=== PATIENT | female | born 1935 | race Caucasian/White ===

== ENCOUNTER 2019-03-31 13:07 | Emergency (ER) | payer MEDICARE, MEDICAID ==
[~2019-03-31] VITALS: Ht 152.4 cm; Wt 61.2 kg
[2019-03-31 13:13] VITALS: BP 161/79
[2019-03-31] MEDS ORDERED: TRAM50TA2 PO (13:36)
[2019-03-31] MEDS ORDERED: PRAV40TA3 PO (13:36)
[2019-03-31] MEDS ORDERED: FLUT16SP BNOSTRILS (13:36)
[2019-03-31] MEDS ORDERED: IBUP-1955 PO (13:36)
[2019-03-31] MEDS ORDERED: TOLT4CAP PO (13:36)
[2019-03-31] MEDS ORDERED: CARV3.122 PO (13:36)
[2019-03-31] MEDS ORDERED: LEVE250T2 PO (13:36)
[2019-03-31] MEDS ORDERED: ALEN70TA6 PO (13:36)
[2019-03-31] MEDS ORDERED: LOSA1TAB42 PO (13:36)
[2019-03-31] MEDS ORDERED: ALBU1.257 IH (13:36)
[2019-03-31] MEDS ORDERED: DULO30CA2 PO (13:36)
[2019-03-31] MEDS ORDERED: LEVO100T9 PO (13:36)
[2019-03-31] MEDS ORDERED: POTA10TA15 PO (13:36)
[2019-03-31] MEDS ORDERED: diphenhydrAMINE HCL ELIX 25 MG/10 ML UDC ONE (14:21)
[2019-03-31] MEDS ORDERED: CEPHALEXIN MONOHYDRATE 500 MG CAPSULE PO ONE (14:21)
[2019-03-31] MEDS: CEPHALEXIN MONOHYDRATE 500 MG CAPSULE PO ONE (14:32)
[2019-03-31] MEDS: DIPHENHYDRAMINE HCL 12.5 MG/5 ML UDC PO ONE (14:32)
--- NOTE | 2019-03-31 14:42 | NUR ---
CALLED TRANSPORT [phone] ETA IS 1530 PER [facility]STAL TRIP # [id number]
--- NOTE | 2019-03-31 15:48 | NUR ---
REPORT GIVEN TO SCIENTIFIC INFORMATICS ANALYST. PAPERWORK GIVEN. PATIENT LEFT IN STABLE CONDITION.
--- NOTE | 2019-03-31 16:03 | NUR ---
PATIENT DENIES CHEST PAIN OR DISCOMFORT AT THIS TIME, PER PATIENT WILL TAKE BP MEDS AT HOME. DISCHARGED TO [facility].
== END 2019-03-31 16:05 ==
LOC: ER 13:15
DX: S60.463A Insect bite (nonvenomous) of left middle finger, initial encounter (principal); S60.465A Insect bite (nonvenomous) of left ring finger, initial encounter; L03.114 Cellulitis of left upper limb; R56.9 Unspecified convulsions; I10 Essential (primary) hypertension; Z79.899 Other long term (current) drug therapy; W57.XXXA Bitten or stung by nonvenomous insect and other nonvenomous arthropods, initial encounter; Y93.89 Activity, other specified; Y92.89 Other specified places as the place of occurrence of the external cause; Y99.8 Other external cause status
CPT/HCPCS: 99283; Q0163 ×2

== ENCOUNTER 2019-05-10 15:50 | Inpatient (IN) | payer MEDICARE, MEDICAID ==
[~2019-05-10] VITALS: Ht 154.9 cm; Wt 51.3 kg
[~2019-05-10 15:50] MED LIST: ALBU1.257 IH; ALEN70TA6 PO; CARV3.122 PO; DULO30CA2 PO; FLUT16SP BNOSTRILS; IBUP-1955 PO; LEVE250T2 PO; LEVO100T9 PO; LOSA1TAB42 PO; POTA10TA15 PO; PRAV40TA3 PO; TOLT4CAP PO; TRAM50TA2 PO
--- NOTE | 2019-05-10 16:10 | NUR ---
rahel, from [facility], altered than usual, c/o lower back pain s/p fall thursday and thursday. Patient a/ox2-3, weak, breathing even and unlabored, no sob noted, attached to the monitoring engineer.
[2019-05-10] MEDS ORDERED: LORA-259 PO (16:14)
[2019-05-10] MEDS ORDERED: IV NS 0.9% 500 ML BAG IV ONE (16:30)
--- NOTE | 2019-05-10 16:30 | NUR ---
PATIENT OFFERED A STRAIGHT CATHETER, PATIENT REFUSED, PREFERS A BED TONY, BUT NOT AT THIS TIME.
[2019-05-10 16:36] LABS: BASOPHILS % (AUTO) 0.5 % (0.0-2.0); EOSINOPHILS % (AUTO) 1.2 % (0.0-6.0); HEMATOCRIT 41 % (33-45); HEMOGLOBIN 13.9 g/dL (11.5-14.8); LYMPHOCYTES # (AUTO) 1.1 /CMM (0.8-4.8); LYMPHOCYTES % (AUTO) 9.9 % (20.0-44.0); MEAN CORPUSCULAR HGB CONC 34 g/dl (31.0-36.0); MEAN CORPUSCULAR VOLUME 83 fL (82-100); MONOCYTES # (AUTO) 0.8 /CMM (0.1-1.30); MONOCYTES % (AUTO) 7.3 % (2.0-12.0); NEUTROPHILS # (AUTO) 8.6 /CMM (1.8-8.9); NEUTROPHILS % (AUTO) 81.1 % (43.0-81.0); PLATELET COUNT (AUTO) 187 /CMM (150-450); RED BLOOD CELL COUNT(AUTO) 4.93 MIL/uL (4.0-5.2); WHITE BLOOD COUNT (AUTO) 10.6 K/uL (4.3-11.0)
[2019-05-10 16:50] LABS: ALANINE AMINOTRANSFERASE 30 U/L (12-78); ALBUMIN 3.3 g/dL (3.4-5.0); ALKALINE PHOSPHATASE 55 U/L (46-116); ASPARTATE AMINOTRANSFERASE 46 U/L (15-37); BILIRUBIN,DIRECT 0.3 mg/dL (0.0-0.2); BILIRUBIN,TOTAL 1.3 mg/dL (0.2-1.0); CALCIUM, SERUM 9.2 mg/dL (8.5-10.1); CARBON DIOXIDE 34 mmol/L (21-32); CHLORIDE 97 mmol/L (98-107); GLUCOSE 112 mg/dL (74-106); POTASSIUM 3.3 mmol/L (3.5-5.1); SODIUM SERUM 138 mmol/L (136-145); TOTAL PROTEIN, SERUM 7.1 g/dL (6.4-8.2); UREA NITROGEN, BLOOD 23 mg/dL (7-18)
[2019-05-10 17:31] LABS: THYROID STIMULATING HORMONE 53.021 uIU/mL (0.358-3.74)
--- NOTE | 2019-05-10 17:42 | NUR ---
NURSING SUP GAVE TELE BED 309-1.
--- NOTE | 2019-05-10 18:10 | NUR ---
REPORT GIVEN TO JOY FRANCES.
--- NOTE | 2019-05-10 18:36 | NUR ---
Patient transferred to room 309-1 in stable condition. No distress noted. Endorsed to Racquel FRANCES.
--- NOTE | 2019-05-10 18:37 | NUR ---
COOLER MAN NOTES RECEIVED PT FROM E.R. STAFF VIA PHI, PT IS AWAKE, ALERT AND VERBALLY RESPONSIVE, ASSISTED TO BED, MADE COMFORTABLE, ROOM SET UP ORIENTATION PROVIDED TO PT, NO COMPLAINT OF PAIN, NOT IN DISTRESS, KEPT WARM AND COMFORTABLE IN BED, RECEIVED ADMITTING ORDERS FROM DR. GUTIERREZ, NOTED AND CARRIED OUT.
[2019-05-10] MEDS ORDERED: ONDANSETRON HCL/PF 4 MG/2 ML VIAL IVP PRN (19:00)
[2019-05-10] MEDS ORDERED: LORAZEPAM INJ 2 MG/ML VIAL IVP PRN (19:00)
[2019-05-10 19:03] LABS: APPEARANCE,URINE Clear (CLEAR); BILIRUBIN,URINE SMALL (NEGATIVE); BLOOD, URINE Moderate Ery/uL (NEGATIVE); COLOR,URINE Dark (YELLOW); KETONES,URINE 40 (NEGATIVE); LEUKOCYTE ESTERASE ,URINE Trace (NEGATIVE); NITRITE, URINE Negative (NEGATIVE); PH,URINE 5.5 (5.0-8.0); PROTEIN,URINE Negative (NEGATIVE); UGLUCOSE Negative (NEGATIVE); UROBILINOGEN,URINE 0.2 EU/dL (0.2)
--- NOTE | 2019-05-10 19:10 | NUR ---
MS RN OPENING NOTES RECEIVED PATIENT IN BED, ALERT, ORIENTED X 2-3, PERIODS OF CONFUSION. BREATHING EVEN AND UNLABORED. NOT IN ANY DISTRESS. ON O2 AT 2LPM VIA NASAL CANNULA. IV LINE IN RAC G#20 INTACT AND PATENT. NO COMPLAINTS OF PAIN AT THIS TIME. ORIENTED TO CALL LIGHT- PLACED WITHIN EASY REACH, BED IN LOW, LOCKED POSITION. WILL CONTINUE TO MONITOR ACCORDINGLY
[2019-05-10 19:15] LABS: BACTERIA,URINE 1+ /HPF (None Seen); MUCUS,URINE Moderate /LPF (None Seen); RBC,URINE 21-50 /HPF (0-2); SQUAMOUS EPITHELIAL CELL,UR Moderate /HPF (None Seen)
--- NOTE | 2019-05-10 19:26 | NUR ---
RN NOTES PATIENT'S POTASSIUM LEVEL IS 3.3. DR. GUTIERREZ MADE AWARE. TELEPHONE ORDER RECEIVED, KCL 40 MEQ PO ONCE. ORDER NOTED AND CARRIED OUT
[2019-05-10] MEDS ORDERED: POTASSIUM CHLORIDE 20 MEQ TAB.PRT.SR PO ONE (19:30)
[2019-05-10 20:00] VITALS: BP 156/72
[2019-05-10] MEDS ORDERED: ALBUTEROL HALF STRENGTH 1.25 MG/3 ML VIAL.NEB IH PRN (20:00)
[2019-05-10] MEDS ORDERED: IBUPROFEN 600 MG TABLET PO PRN (20:00)
[2019-05-10] MEDS: IV D5/ 0.9% NACL 1,000 ML IV PRN (20:06)
[2019-05-10] MEDS: CEFTRIAXONE 1 G in IV D5W 50 ML IV SCH (20:06)
[2019-05-10] MEDS: ENOXAPARIN SODIUM 30 MG/0.3 ML DISP.SYRIN SQ SCH (21:06)
--- NOTE | 2019-05-10 21:15 | NUR ---
RN NOTES SKIN ASSESSMENT DONE- BRUISES ON R) ARM AND BILATERAL LEGS NOTED. ONLY ABLE TO TAKE PICTURES OF THE R) FOREARM AND R) LEG BUT AFTER THAT, PATIENT REFUSED PICTURES TO BE TAKEN. PER PATIENT," I'VE HAD ENOUGH OF THIS. I WANT TO REST NOW."
[2019-05-11] MEDS: TRAMADOL HCL 50 MG TABLET PO PRN ×2 (05:11→17:35)
--- NOTE | 2019-05-11 05:11 | NUR ---
RN NOTES PATIENT C/O BACK PAIN AFTER CHANGING A DIAPER, BUT UNABLE TO SCALE. TRAMADOL 50MG PO GIVEN ORDERED.
[2019-05-11 06:32] LABS: BASOPHILS % (AUTO) 0.3 % (0.0-2.0); HEMATOCRIT 41 % (33-45); HEMOGLOBIN 14.2 g/dL (11.5-14.8); LYMPHOCYTES # (AUTO) 1.1 /CMM (0.8-4.8); LYMPHOCYTES % (AUTO) 12.9 % (20.0-44.0); MEAN CORPUSCULAR HGB CONC 34 g/dl (31.0-36.0); MEAN CORPUSCULAR VOLUME 83 fL (82-100); MONOCYTES # (AUTO) 0.7 /CMM (0.1-1.30); MONOCYTES % (AUTO) 7.8 % (2.0-12.0); NEUTROPHILS # (AUTO) 6.7 /CMM (1.8-8.9); PLATELET COUNT (AUTO) 184 /CMM (150-450); RED BLOOD CELL COUNT(AUTO) 5.01 MIL/uL (4.0-5.2); WHITE BLOOD COUNT (AUTO) 8.7 K/uL (4.3-11.0)
--- NOTE | 2019-05-11 06:39 | NUR ---
MS RN CLOSING NOTES PATIENT RESTING IN BED, ALERT, ORIENTED X 2-3, PERIODS OF CONFUSION, FREQUENT REORIENTATION DONE. PERIPHERAL IV INFUSING AT 75ML/HR. KEPT CLEAN, DRY AND COMFORTABLE. NO ACUTE CHANGES OVERNIGHT. SAFETY MEASURES IN PLACE; CALL LIGHT WITHIN REACH, BED IN LOW, LOCKED POSITION. WILL ENDORSE BELLE TO ONCOMING RN
[2019-05-11 07:06] LABS: CALCIUM, SERUM 8.7 mg/dL (8.5-10.1); CREATININE 0.8 mg/dL (0.6-1.3); MAGNESIUM 1.6 mg/dL (1.8-2.4); POTASSIUM 3.4 mmol/L (3.5-5.1)
[2019-05-11] MEDS: PANTOPRAZOLE 40 MG TABLET.DR PO SCH (07:48)
[2019-05-11] MEDS: LEVOTHYROXINE SODIUM 88 MCG TABLET PO SCH (07:48)
[2019-05-11 08:00] VITALS: BP 149/72
[2019-05-11] MEDS: ASPIRIN 81 MG TAB.CHEW PO SCH (08:17)
[2019-05-11] MEDS: LEVETIRACETAM (250 MG) 250 MG TABLET PO SCH ×2 (08:17→16:29)
[2019-05-11] MEDS: DULOXETINE HCL 30 MG CAPSULE.DR PO SCH ×2 (08:17→16:29)
[2019-05-11] MEDS: POTASSIUM CHLORIDE 10 MEQ TABLET.SA PO SCH (08:17)
[2019-05-11] MEDS: ATORVASTATIN 10 MG TABLET PO SCH ×2 (08:19→17:17)
[2019-05-11] MEDS: HYDROCHLOROTHIAZIDE 25 MG TABLET PO SCH (08:21)
[2019-05-11] MEDS: CARVEDILOL 3.125 MG TABLET PO SCH ×2 (08:21→16:55)
[2019-05-11] MEDS: LOSARTAN POTASSIUM 50 MG TABLET PO SCH (08:21)
--- NOTE | 2019-05-11 08:30 | NUR ---
Received patient in bed. 82 year old female, alert and oriented x 2-3. Pleasant, calm and cooperative. No c/o pain or discomfort. Breathing even and unlabored. Lung sounds clear. Bowel sounds present on all 4 quadrants. no seizure episodes noted. IV fluids running d5NS at 75cc/hr. IV site noted on R antecubital area. No signs and symptoms of phlebitis or infiltration noted. Fall risk precautions in place. All due AM meds given. Tolerated well with no ASE noted.
[2019-05-11] MEDS ORDERED: FLUTICASONE PROPIONATE 16 GM BOTTLE NS PRN (09:00)
[2019-05-11] MEDS: Magnesium 1GM/D5W 100ML PREMIX 100 ML IV SCH ×2 (11:05→12:07)
[2019-05-11 16:00] VITALS: BP 103/60
--- NOTE | 2019-05-11 19:23 | NUR ---
MS Closing notes Patient in bed still awake at this time. NO complaints of pain or discomfort. Tramadol was given earlier at 1735, and was effective. Patient denies any pain or discomfort. Patient is calm and comfortable in bed. NO cardiac or respiratory distress noted. Breathing is even and unlabored. Lung sounds clear. IV fluids running. IV was inserted on R antecubital. IV site intact. dressing clean. No s/s of infection or infiltration noted. Will endore to next shift.
[2019-05-11 19:30] VITALS: BP 113/72
--- NOTE | 2019-05-11 19:30 | NUR ---
MS RN NOTES PATIENT IN BED AWAKE, ALERT AND ORIENTED X 2. DENIES NO ACUTE PAIN NO ACUTE RESPIRATORY DISTRESS ON 2L NC. BREATHING IS EVEN AND UNLABORED. IV ON RAC 22G CLEAN DRY AND INTACT. RUNNING D5 NS AT 75ML/HR. SHOWS NO SIGNS OF INFILTRATION NO REDNESS. SAFETY PRECAUTION IN PLACE. BED IN LOWEST POSITION, LOCKED, AND CALL LIGHT KEPT WITHIN REACH. WILL CONTINUE TO MONITOR.
[2019-05-11 20:00] VITALS: BP 113/72
[2019-05-11] MEDS: CEFTRIAXONE 1 G in IV D5W 50 ML IV SCH (20:09)
[2019-05-11] MEDS: ENOXAPARIN SODIUM 30 MG/0.3 ML DISP.SYRIN SQ SCH (20:12)
[2019-05-12] MEDS: IV D5/ 0.9% NACL 1,000 ML IV PRN (03:59)
[2019-05-12 06:22] LABS: BASOPHILS % (AUTO) 0.5 % (0.0-2.0); EOSINOPHILS % (AUTO) 5.8 % (0.0-6.0); HEMATOCRIT 35 % (33-45); LYMPHOCYTES # (AUTO) 1.2 /CMM (0.8-4.8); LYMPHOCYTES % (AUTO) 18.4 % (20.0-44.0); MEAN CORPUSCULAR HGB CONC 34 g/dl (31.0-36.0); MEAN CORPUSCULAR VOLUME 83 fL (82-100); MONOCYTES # (AUTO) 0.6 /CMM (0.1-1.30); MONOCYTES % (AUTO) 9.3 % (2.0-12.0); NEUTROPHILS # (AUTO) 4.5 /CMM (1.8-8.9); PLATELET COUNT (AUTO) 176 /CMM (150-450); RED BLOOD CELL COUNT(AUTO) 4.28 MIL/uL (4.0-5.2); WHITE BLOOD COUNT (AUTO) 6.8 K/uL (4.3-11.0)
--- NOTE | 2019-05-12 06:37 | NUR ---
MS RN NOTES PATIENT ASLEEP IN BED, ALERT AND ORIENTED X 2. DENIES NO ACUTE PAIN NO ACUTE RESPIRATORY DISTRESS ON 2L NC. BREATHING IS EVEN AND UNLABORED. IV ON RAC 22G CLEAN DRY AND INTACT. RUNNING D5 NS AT 75ML/HR. SHOWS NO SIGNS OF INFILTRATION NO REDNESS. ALL DUE MEDICATIONS GIVEN. SAFETY PRECAUTION IN PLACE. BED IN LOWEST POSITION, LOCKED, AND CALL LIGHT KEPT WITHIN REACH. WILL ENDORSE TO ONCOMING NURSE.
[2019-05-12 07:00] LABS: CALCIUM, SERUM 8.1 mg/dL (8.5-10.1); CREATININE 0.7 mg/dL (0.6-1.3)
[2019-05-12 08:00] VITALS: BP 159/66
--- NOTE | 2019-05-12 08:03 | NUR ---
MS/RN Patient received AOx2, forgetful, able to response all stimuli. Pt does no c/o pain or any discomfort, refused nebulizer this morning, IV site intact. Kept low bed position with elevated HOB. Encouraged pt to use call light when she needs assist or help. Will continue to monitor.
[2019-05-12] MEDS: HYDROCHLOROTHIAZIDE 25 MG TABLET PO SCH (08:38)
[2019-05-12] MEDS: PANTOPRAZOLE 40 MG TABLET.DR PO SCH (08:39)
[2019-05-12] MEDS: ASPIRIN 81 MG TAB.CHEW PO SCH (08:39)
[2019-05-12] MEDS: LEVETIRACETAM (250 MG) 250 MG TABLET PO SCH ×2 (08:39→17:22)
[2019-05-12] MEDS: POTASSIUM CHLORIDE 10 MEQ TABLET.SA PO SCH (08:40)
[2019-05-12] MEDS: CARVEDILOL 3.125 MG TABLET PO SCH ×2 (08:40→17:22)
[2019-05-12] MEDS: LEVOTHYROXINE SODIUM 88 MCG TABLET PO SCH (08:40)
[2019-05-12] MEDS: DULOXETINE HCL 30 MG CAPSULE.DR PO SCH ×2 (08:40→17:22)
[2019-05-12] MEDS: LOSARTAN POTASSIUM 50 MG TABLET PO SCH (08:40)
--- NOTE | 2019-05-12 10:20 | NUR ---
MS/RN Patient noticed potassium level 3.0 this morning and given 10 mEq potassium PO, paged Dr. Ellis regarding above.
[2019-05-12 10:57] VITALS: BP 159/66
[2019-05-12] MEDS: TRAMADOL HCL 50 MG TABLET PO PRN (12:13)
[2019-05-12] MEDS ORDERED: POTASSIUM CHLORIDE 20 MEQ TAB.PRT.SR PO ONE ×2 (12:30→13:00)
--- NOTE | 2019-05-12 14:10 | NUR ---
MS/RN Pt had potassium order at 12:30 40 mEq and 13:00 40 mEq order, spoke with pharmacy/Shantal regarding placed order duplicate. Will "Non Administer" at 13:00 potassium.
[2019-05-12 16:00] VITALS: BP 132/67
[2019-05-12] MEDS: ATORVASTATIN 10 MG TABLET PO SCH (17:23)
--- NOTE | 2019-05-12 18:39 | NUR ---
MS/RN Patient stay in bed comfortably, skin warm and dry to touch, kept low bed portion and remain elevate HOB. D/C IV fluid, no s/s fluid overload observed. No SOB, unlabored. Encouraged pt to use call light when she needs assist or help. Will continue to monitor for safety.
--- NOTE | 2019-05-12 19:30 | NUR ---
ms kady initial notes received report from am nurse while doing our rounds. she's in bed resting comfortably in bed without any distress noted. respiration even and non-labored skin warm and dry to touch. kept her warm and comfortable at all times. place call light at reach. will continue monitoring.
[2019-05-12 20:00] VITALS: BP 132/72
[2019-05-12] MEDS: CEFTRIAXONE 1 G in IV D5W 50 ML IV SCH (21:32)
[2019-05-12] MEDS: ENOXAPARIN SODIUM 30 MG/0.3 ML DISP.SYRIN SQ SCH (22:01)
--- NOTE | 2019-05-13 | NUR ---
ms vmware consultant notes pt resting at this time. Rocephin was done no adverse reaction noted. will continue monitoring. bed alarm set for safety.
[2019-05-13 06:25] LABS: BASOPHILS % (AUTO) 0.6 % (0.0-2.0); HEMATOCRIT 36 % (33-45); HEMOGLOBIN 12.1 g/dL (11.5-14.8); LYMPHOCYTES # (AUTO) 1.3 /CMM (0.8-4.8); LYMPHOCYTES % (AUTO) 20.6 % (20.0-44.0); MEAN CORPUSCULAR HGB CONC 34 g/dl (31.0-36.0); MEAN CORPUSCULAR VOLUME 83 fL (82-100); MONOCYTES # (AUTO) 0.6 /CMM (0.1-1.30); MONOCYTES % (AUTO) 9.7 % (2.0-12.0); NEUTROPHILS # (AUTO) 3.9 /CMM (1.8-8.9); NEUTROPHILS % (AUTO) 63.1 % (43.0-81.0); PLATELET COUNT (AUTO) 179 /CMM (150-450); RED BLOOD CELL COUNT(AUTO) 4.31 MIL/uL (4.0-5.2); WHITE BLOOD COUNT (AUTO) 6.2 K/uL (4.3-11.0)
[2019-05-13 06:47] LABS: CALCIUM, SERUM 8.2 mg/dL (8.5-10.1); CREATININE 0.7 mg/dL (0.6-1.3); POTASSIUM 3.6 mmol/L (3.5-5.1)
--- NOTE | 2019-05-13 07:05 | NUR ---
ms drug purchaser closing notes pt back to sleep after morning care done with the helped of AMEYA Mercado. stable flip the night and slept well. all due meds given and all needs met. kept her warm and comfortable at all times. on semi fowlers position with side rails x2 up and bed alarm set for safety. will endorse to am nurse for continuity of care.
--- NOTE | 2019-05-13 07:29 | NUR ---
MS RN OPENING NOTES RECEIVED PATIENT IN BED, ALERT, ORIENTED X 2-3, NOT IN ANY SIGNS OF DISTRESS NOTED AT THIS TIME. ON O2 AT 2LPM VIA NASAL CANNULA. NO COMPLAINTS OF PAIN AT THIS TIME. ORIENTED TO CALL LIGHT- PLACED WITHIN EASY REACH. SAFETY MEASURES IN PLACE, BED IN LOW, LOCKED POSITION. WILL CONTINUE TO MONITOR ACCORDINGLY.
[2019-05-13 08:00] VITALS: BP 135/78
[2019-05-13] MEDS: LEVETIRACETAM (250 MG) 250 MG TABLET PO SCH (08:28)
[2019-05-13] MEDS: LOSARTAN POTASSIUM 50 MG TABLET PO SCH (08:28)
[2019-05-13 08:29] VITALS: BP 135/78
[2019-05-13] MEDS: PANTOPRAZOLE 40 MG TABLET.DR PO SCH (08:29)
[2019-05-13] MEDS: POTASSIUM CHLORIDE 10 MEQ TABLET.SA PO SCH (08:29)
[2019-05-13] MEDS: LEVOTHYROXINE SODIUM 88 MCG TABLET PO SCH (08:29)
[2019-05-13] MEDS: CARVEDILOL 3.125 MG TABLET PO SCH (08:29)
[2019-05-13] MEDS: HYDROCHLOROTHIAZIDE 25 MG TABLET PO SCH (08:29)
[2019-05-13] MEDS: ASPIRIN 81 MG TAB.CHEW PO SCH (08:29)
[2019-05-13] MEDS: DULOXETINE HCL 30 MG CAPSULE.DR PO SCH (08:30)
--- NOTE | 2019-05-13 14:30 | NUR ---
FLAME HARDENING MACHINE OPERATOR NOTES PATIENT DISCHARGED IN STABLE CONDITION. A/O X 1-2. V/S TAKEN, STABLE AND RECORDED. PATIENT'S IV REMOVED AND APPLIED PRESSURE DRESSINGS. SKIN ISSUES WAS DOCUMENTED, PICTURES FILED ON CHART. NAME ARM BAND REMOVED. ALL BELONGINGS CHECKED AND SIGNED. PATIENT IS GOING TO [facility], CALLED AND SPOKE TO YVROSE ACEVEDO TO GIVE REPORTS. PATIENT WAS PICKED UP BY 2 AMBULANCE STAFF, LEFT VIA GURNEY WITH NO SIGNS OF DISTRESS NOTED. CHARGE NURSE AWARE OF DISCHARGED.
== END 2019-05-13 14:30 | DRG 690 ==
LOC: ER 15:55 → TELE 18:05 → MED 20:42
PROVIDERS: ADMIT Legal Medicine; ATTEND Legal Medicine
DX: N39.0 Urinary tract infection, site not specified (principal); M48.54XA Collapsed vertebra, not elsewhere classified, thoracic region, initial encounter for fracture; E86.0 Dehydration; I10 Essential (primary) hypertension; R56.9 Unspecified convulsions; F41.1 Generalized anxiety disorder; J44.9 Chronic obstructive pulmonary disease, unspecified; Z79.899 Other long term (current) drug therapy; M19.90 Unspecified osteoarthritis, unspecified site; G89.29 Other chronic pain; D64.9 Anemia, unspecified; F02.80 Dementia in other diseases classified elsewhere, unspecified severity, without behavioral disturbance, psychotic disturbance, mood disturbance, and anxiety; F03.90 Unspecified dementia, unspecified severity, without behavioral disturbance, psychotic disturbance, mood disturbance, and anxiety; M85.80 Other specified disorders of bone density and structure, unspecified site; M41.9 Scoliosis, unspecified
CPT/HCPCS: 36415; 71045-TC; 72128-TC; 72131-TC; 80048-TC; 80076-TC; 81000-TC; 83735-TC; 84443-TC; 84484-TC; 85025-TC; 85730-TC; 87081-TC; 87086-TC; 94799-TC; 97110-TC; 97116-TC; 97530-TC; G0378; J0696; J1650; J3475; J7040; J7042; J7060

== ENCOUNTER 2019-07-26 13:40 | Emergency (ER) | payer MEDICARE, OTHER ==
[~2019-07-26] VITALS: Ht 167.6 cm; Wt 54.4 kg
[~2019-07-26 13:40] MED LIST changes: +LORA-259 PO
--- NOTE | 2019-07-26 13:50 | NUR ---
patient came in to the [facility] c/o low back pain s/p glf this morning. On room air, breathing evenly and unlabored. connected to the monitor and pulse ox. kept comfortable, will continue to monitor accordingly.
--- NOTE | 2019-07-26 15:09 | NUR ---
wheeled patient via gurney to tn.
--- NOTE | 2019-07-26 15:23 | NUR ---
patient came back from ct
[2019-07-26 15:29] LABS: CALCIUM, SERUM 9.1 mg/dL (8.5-10.1); CREATININE 0.8 mg/dL (0.6-1.3); POTASSIUM 3.2 mmol/L (3.5-5.1)
[2019-07-26] MEDS ORDERED: ASPI-605 PO (15:30)
[2019-07-26] MEDS ORDERED: MAGN400O6 PO (15:30)
[2019-07-26] MEDS ORDERED: MULT-1119 PO (15:30)
[2019-07-26] MEDS ORDERED: DOCU250C88 PO (15:30)
[2019-07-26 15:43] LABS: BASOPHILS % (AUTO) 0.2 % (0.0-2.0); EOSINOPHILS % (AUTO) 5.4 % (0.0-6.0); HEMATOCRIT 38 % (33-45); HEMOGLOBIN 12.8 g/dL (11.5-14.8); LYMPHOCYTES # (AUTO) 0.8 /CMM (0.8-4.8); LYMPHOCYTES % (AUTO) 9.1 % (20.0-44.0); MEAN CORPUSCULAR HGB CONC 34 g/dl (31.0-36.0); MEAN CORPUSCULAR VOLUME 86 fL (82-100); MONOCYTES # (AUTO) 0.4 /CMM (0.1-1.30); NEUTROPHILS # (AUTO) 6.9 /CMM (1.8-8.9); NEUTROPHILS % (AUTO) 80.3 % (43.0-81.0); PLATELET COUNT (AUTO) 176 /CMM (150-450); RED BLOOD CELL COUNT(AUTO) 4.41 MIL/uL (4.0-5.2); WHITE BLOOD COUNT (AUTO) 8.6 K/uL (4.3-11.0)
[2019-07-26] MEDS ORDERED: POTASSIUM CHLORIDE 20 MEQ TAB.PRT.SR PO ONE ×2 (16:00→16:27)
[2019-07-26] MEDS ORDERED: ACETAMINOPHEN 325 MG TABLET ONE (16:26)
[2019-07-26] MEDS ORDERED: ACETAMINOPHEN 650 MG/20.3 ML UDC PO ONE (16:30)
[2019-07-26] MEDS ORDERED: ALBUTEROL FS 2.5 MG/3 ML VIAL.NEB ONE (16:46)
[2019-07-26] MEDS ORDERED: IPRATROPIUM NEB FS 0.5 MG/2.5 ML AMPUL.NEB ONE (16:46)
--- NOTE | 2019-07-26 16:46 | NUR ---
informed MD regarding patient is wheezing and ordered breathing treatment. RT at bedside for treatment.
[2019-07-26] MEDS ORDERED: ALBUTEROL FS 2.5 MG/3 ML VIAL.NEB NEB ONE (17:00)
[2019-07-26] MEDS ORDERED: IPRATROPIUM NEB FS 0.5 MG/2.5 ML AMPUL.NEB NEB ONE (17:00)
--- NOTE | 2019-07-26 19:12 | NUR ---
report given to Dara FRANCES for isidro
--- NOTE | 2019-07-26 19:17 | NUR ---
WAYLON SCHILLING [id number] TRIP #[id number]
--- NOTE | 2019-07-26 20:47 | NUR ---
report given to business development assistant from [facility]
--- NOTE | 2019-07-26 20:48 | NUR ---
IV removed. Catheter intact and site benign. Pressure and 4x4 applied to site. No bleeding noted.
--- NOTE | 2019-07-26 21:01 | NUR ---
pt was picked up by [facility] and transferred back to the facility in stable condition.
[2019-07-26 23:34] VITALS: BP 117/72
== END 2019-07-26 21:01 | disposition home or self-care (01) ==
LOC: ER 13:42
DX: S40.021A Contusion of right upper arm, initial encounter (principal); E87.6 Hypokalemia; J45.909 Unspecified asthma, uncomplicated; R51 Headache; I10 Essential (primary) hypertension; E78.5 Hyperlipidemia, unspecified; E03.9 Hypothyroidism, unspecified; G40.909 Epilepsy, unspecified, not intractable, without status epilepticus; M54.5 Low back pain; Z90.710 Acquired absence of both cervix and uterus; Z88.5 Allergy status to narcotic agent; Z79.899 Other long term (current) drug therapy; Z79.82 Long term (current) use of aspirin; W01.0XXA Fall on same level from slipping, tripping and stumbling without subsequent striking against object, initial encounter; Y93.89 Activity, other specified; Y92.89 Other specified places as the place of occurrence of the external cause; Y99.8 Other external cause status
CPT/HCPCS: 36415; 70450-TC; 71045-TC; 71250-TC; 72125-TC; 80048-TC; 85025-TC; 85730-TC

== ENCOUNTER 2019-11-17 16:23 | Emergency (ER) | payer MEDICARE, MEDICAID ==
[~2019-11-17] VITALS: Ht 157.5 cm; Wt 61.7 kg
[~2019-11-17 16:23] MED LIST changes: +ASPI-605 PO; +DOCU250C21 PO; -FLUT16SP BNOSTRILS; -LEVO100T9 PO; +MAGN400O6 PO; +MULT-1119 PO; -TOLT4CAP PO
--- NOTE | 2019-11-17 16:35 | NUR ---
BIB [facility], REDNESS/RASH NOTED IN RIGHT UPPER EXTREMITY. ON ROOM AIR, BREATHING EVENLY AND UNLABORED. KEPT COMFORTABLE, WILL CONTINUE TO MONITOR ACCORDINGLY.
[2019-11-17] MEDS ORDERED: AMLO10TA4 PO (17:23)
[2019-11-17] MEDS ORDERED: IBUP-1955 PO (17:23)
[2019-11-17] MEDS ORDERED: HYDR25TA4 PO (17:23)
[2019-11-17] MEDS ORDERED: FLUT16SP NS (17:23)
[2019-11-17] MEDS ORDERED: LOSA100T31 PO (17:23)
[2019-11-17] MEDS ORDERED: ATOR10TA PO (17:23)
[2019-11-17] MEDS ORDERED: ALBU18HF2 IH (17:26)
[2019-11-17] MEDS ORDERED: TRAZ-182 PO (17:26)
--- NOTE | 2019-11-17 18:08 | NUR ---
CALLED [facility] [phone] ETA IS 1900 PER DHIRAJ.
--- NOTE | 2019-11-17 19:18 | NUR ---
[facility]SP[facility] IN FACILITY
[2019-11-17 19:25] VITALS: BP 122/75
--- NOTE | 2019-11-17 19:25 | NUR ---
pt left facility via private ambulance,. vss, mitchell ntoed. report given to emt's.
== END 2019-11-17 19:26 ==
LOC: ER 16:25
DX: L03.113 Cellulitis of right upper limb (principal); I10 Essential (primary) hypertension; E78.5 Hyperlipidemia, unspecified; E03.9 Hypothyroidism, unspecified; F03.90 Unspecified dementia, unspecified severity, without behavioral disturbance, psychotic disturbance, mood disturbance, and anxiety; R56.9 Unspecified convulsions; M54.5 Low back pain; Z90.710 Acquired absence of both cervix and uterus; Z88.5 Allergy status to narcotic agent; Z79.899 Other long term (current) drug therapy

== ENCOUNTER 2019-12-07 20:14 | Emergency (ER) | payer MEDICARE, OTHER ==
[~2019-12-07] VITALS: Ht 157.5 cm; Wt 51.3 kg
[~2019-12-07 20:14] MED LIST changes: +ALBU18HF2 IH; +AMLO10TA4 PO; +ATOR10TA PO; +FLUT16SP NS; +HYDR25TA4 PO; +LOSA100T31 PO; -LOSA1TAB42 PO; +TRAZ-182 PO
--- NOTE | 2019-12-07 20:40 | NUR ---
GEOVANI APA FOR C/O R LOWER BACK PAIN S/P GLF. - KO; pt awake, alert, -sob, nad noted, vss, pending md vela.
[2019-12-07 20:55] LABS: BASOPHILS # (AUTO) 0.1 /CMM (0.0-0.2); BASOPHILS % (AUTO) 0.6 % (0.0-2.0); EOSINOPHILS % (AUTO) 2.8 % (0.0-6.0); HEMATOCRIT 41 % (33-45); HEMOGLOBIN 13.6 g/dL (11.5-14.8); LYMPHOCYTES # (AUTO) 1.3 /CMM (0.8-4.8); LYMPHOCYTES % (AUTO) 13.8 % (20.0-44.0); MEAN CORPUSCULAR HGB CONC 34 g/dl (31.0-36.0); MEAN CORPUSCULAR VOLUME 87 fL (82-100); MONOCYTES # (AUTO) 0.6 /CMM (0.1-1.30); MONOCYTES % (AUTO) 6.5 % (2.0-12.0); NEUTROPHILS # (AUTO) 6.9 /CMM (1.8-8.9); NEUTROPHILS % (AUTO) 76.3 % (43.0-81.0); PLATELET COUNT (AUTO) 214 /CMM (150-450); RED BLOOD CELL COUNT(AUTO) 4.64 MIL/uL (4.0-5.2); WHITE BLOOD COUNT (AUTO) 9.1 K/uL (4.3-11.0)
[2019-12-07 21:03] LABS: CALCIUM, SERUM 9.7 mg/dL (8.5-10.1); POTASSIUM 3.2 mmol/L (3.5-5.1)
[2019-12-07 21:09] LABS: ALBUMIN 4.1 g/dL (3.4-5.0); BILIRUBIN,TOTAL 0.4 mg/dL (0.2-1.0); TOTAL PROTEIN, SERUM 7.7 g/dL (6.4-8.2)
[2019-12-07] MEDS ORDERED: IOHEXOL-300 100 ML VIAL IV ONE (21:18)
[2019-12-07] MEDS ORDERED: IV NS 0.9% 250 ML IV ONE (21:19)
[2019-12-07] MEDS ORDERED: ACETAMINOPHEN 325 MG TABLET PO ONE (22:00)
[2019-12-07] MEDS ORDERED: FENTANYL PF 100MCG/2ML AMPUL IV ONE (22:30)
[2019-12-07] MEDS ORDERED: FENTANYL PF 100MCG/2ML AMPUL ONE (23:03)
[2019-12-07] MEDS ORDERED: ACETAMINOPHEN 325 MG TABLET ONE (23:03)
--- NOTE | 2019-12-08 00:11 | NUR ---
ambulance eta 3:30am
[2019-12-08 03:00] VITALS: BP 111/59
--- NOTE | 2019-12-08 04:30 | NUR ---
pt left via private ambulance to [facility]; pt in stable condition. vss. nad noted. dc and rx given to ambulance staff.
--- NOTE | 2019-12-08 05:00 | NUR ---
[facility] unit called, facility is not responding to calls and wouldnt open door. attempted to call faclity. no answer, called facility's media services director (spike) left message., called patients family, aware of situation
== END 2019-12-08 04:30 ==
LOC: ER 20:14
DX: S22.31XA Fracture of one rib, right side, initial encounter for closed fracture (principal); S32.018A Other fracture of first lumbar vertebra, initial encounter for closed fracture; E87.6 Hypokalemia; I31.3 Pericardial effusion (noninflammatory); M54.5 Low back pain; G89.29 Other chronic pain; K59.00 Constipation, unspecified; I10 Essential (primary) hypertension; E78.5 Hyperlipidemia, unspecified; E03.9 Hypothyroidism, unspecified; R56.9 Unspecified convulsions; Z90.710 Acquired absence of both cervix and uterus; Z88.5 Allergy status to narcotic agent; Z79.82 Long term (current) use of aspirin; Z79.899 Other long term (current) drug therapy; W18.39XA Other fall on same level, initial encounter; Y93.89 Activity, other specified; Y92.89 Other specified places as the place of occurrence of the external cause; Y99.8 Other external cause status
CPT/HCPCS: 36415; 71260; 74177; 80053; 85025; 96374; 99285; J3010; J7050; Q9967

== ENCOUNTER 2020-04-11 11:32 | Emergency (ER) | payer MEDICARE, OTHER ==
[~2020-04-11] VITALS: Ht 154.9 cm; Wt 54.4 kg
[~2020-04-11 11:32] MED LIST changes: -ALEN70TA6 PO; +ALEN70TA69 PO
--- NOTE | 2020-04-11 11:45 | NUR ---
MARGI QUINONES FRL[facility] DETENTION, HEAD INJURY S/P SLIP AND FALL. PT NOTED WITH AN ABRASION ON THE R SIDE OF THE HEAD. DENIES LOOSING CONSCIOUSNESS. VS CHECKED. WOUND CLEANED. AWAITING MD SILVEIRA. .
[2020-04-11] MEDS ORDERED: MULT-647 PO (12:35)
[2020-04-11] MEDS ORDERED: LEVO88TA5 PO (12:35)
[2020-04-11] MEDS ORDERED: ACET325T53 PO (12:35)
[2020-04-11] MEDS ORDERED: BISA10SU11 RC (12:35)
--- NOTE | 2020-04-11 12:45 | NUR ---
CALLED TRANSPORT AM ETA IS 1400
--- NOTE | 2020-04-11 14:11 | NUR ---
repot given to farheen tire service supervisor
--- NOTE | 2020-04-11 14:11 | NUR ---
Patient discharged to home in stable condition. Written and verbal after care instructions given. Patient verbalizes understanding of instruction.
[2020-04-11 14:12] VITALS: BP 138/81
== END 2020-04-11 14:12 | disposition home or self-care (01) ==
LOC: ER 11:37
DX: S00.03XA Contusion of scalp, initial encounter (principal); I10 Essential (primary) hypertension; E78.5 Hyperlipidemia, unspecified; M54.5 Low back pain; Z90.710 Acquired absence of both cervix and uterus; Z88.5 Allergy status to narcotic agent; Z79.82 Long term (current) use of aspirin; Z79.899 Other long term (current) drug therapy; W18.09XA Striking against other object with subsequent fall, initial encounter; Y93.89 Activity, other specified; Y92.89 Other specified places as the place of occurrence of the external cause; Y99.8 Other external cause status
CPT/HCPCS: 70450-TC